=== PATIENT | female | born 1990 | race Two or more races ===

== ENCOUNTER 2017-07-24 00:19 | Emergency (ER) | payer SELFPAY ==
[~2017-07-24] VITALS: Ht 165.1 cm; Wt 111.5 kg
[2017-07-24] MEDS ORDERED: PROP60CA PO (00:52)
[2017-07-24] MEDS ORDERED: ONDANSETRON ODT 4 MG ONE (00:53)
[2017-07-24 00:54] LABS: BASOPHILS # (AUTO) 0.04 x10^3/uL (0-0.1); BASOPHILS % (AUTO) 0 % (0-1); EOSINOPHILS # (AUTO) 0.26 x10^3/uL (0-0.4); EOSINOPHILS % (AUTO) 3 % (1-7); LYMPHOCYTES # (AUTO) 3.48 x10^3/uL (1-3.4); LYMPHOCYTES % (AUTO) 37 % (22-44); MD NO; MEAN CORPUSCULAR HEMOGLOBIN 28.6 pg (27.0-34.8); MEAN CORPUSCULAR HGB CONC 33.3 g/dL (32.4-35.8); MEAN CORPUSCULAR VOLUME 85.9 fL (80-100); MEAN PLATELET VOLUME 8.8 fL (7.4-10.4); MONOCYTES % (AUTO) 10 % (2-9); NEUTROPHILS # (AUTO) 4.82 x10^3/uL (1.8-6.8); NEUTROPHILS % (AUTO) 51 % (42-75); PLATELET COUNT 268 x10^3/uL (130-400); RED BLOOD COUNT 5.24 x10^6/uL (3.82-5.3); RED CELL DISTRIBUTION WIDTH 13.6 % (9.6-15.2)
[2017-07-24] MEDS ORDERED: SODIUM CHLORIDE FLUSH 10ML SYR IVF ONE (01:00)
[2017-07-24] MEDS ORDERED: ONDANSETRON 2MG/ML, 2ML IVPush ONE (01:00)
[2017-07-24] MEDS ORDERED: SODIUM CHLORIDE 0.9% 1,000ML IVBOLUS ONE (01:00)
[2017-07-24 01:06] LABS: ALANINE AMINOTRANSFERASE 24 U/L (12-78); ALBUMIN 3.5 g/dL (3.4-5.0); ANION GAP 6 mmol/L (5-15); CALCIUM 8.5 mg/dL (8.5-10.1); CHLORIDE 109 mmol/L (98-107); CREATININE 0.74 mg/dL (0.55-1.02)
[2017-07-24 01:09] LABS: ALKALINE PHOSPHATASE 69 U/L (45-117); BILIRUBIN,TOTAL 0.6 mg/dL (0.2-1.0); TOTAL PROTEIN 7.9 g/dL (6.4-8.2)
[2017-07-24 01:20] LABS: HCG UR SG 1.035 (1.003-1.030)
[2017-07-24 01:24] LABS: MICROSCOPIC INDICATED
[2017-07-24 01:25] LABS: CULTURE INDICATED? YES
[2017-07-24] MEDS ORDERED: FAMOTIDINE 20 MG/2 ML IVPush ONE (02:00)
[2017-07-24] MEDS ORDERED: FAMOTIDINE 20 MG/2 ML ONE (02:24)
[2017-07-24 04:06] VITALS: BP 118/62
== END 2017-07-24 04:08 | disposition home or self-care (01) ==
LOC: ED 02:00
DX: R11.2 Nausea with vomiting, unspecified (principal); R19.7 Diarrhea, unspecified; R10.9 Unspecified abdominal pain
CPT/HCPCS: 36415; 76700; 80053; 81001; 81025; 83690; 85025; 87077; 87086; 96361; 96374; 99285; J7030; 87186; S0028

== ENCOUNTER 2017-07-28 08:20 | Emergency (ER) | payer SELFPAY ==
[~2017-07-28] VITALS: Ht 12.7 cm; Wt 112.4 kg
[~2017-07-28 08:20] MED LIST: PROP60CA PO
[2017-07-28] MEDS ORDERED: ONDANSETRON ODT 8 MG PO ONE (09:30)
[2017-07-28] MEDS ORDERED: SODIUM CHLORIDE FLUSH 10ML SYR IVF ONE (09:30)
[2017-07-28] MEDS ORDERED: MORPHINE SULFATE 4 MG/ML, 1ML IVPush PRN (09:30)
[2017-07-28] MEDS ORDERED: ONDANSETRON ODT 4 MG ONE (09:37)
[2017-07-28] MEDS ORDERED: MORPHINE SULFATE 4 MG/ML, 1ML ONE (09:37)
[2017-07-28 09:47] LABS: BASOPHILS # (AUTO) 0.02 x10^3/uL (0-0.1); BASOPHILS % (AUTO) 0 % (0-1); EOSINOPHILS # (AUTO) 0.31 x10^3/uL (0-0.4); EOSINOPHILS % (AUTO) 4 % (1-7); LYMPHOCYTES # (AUTO) 3.17 x10^3/uL (1-3.4); LYMPHOCYTES % (AUTO) 39 % (22-44); MD NO; MEAN CORPUSCULAR HGB CONC 34.2 g/dL (32.4-35.8); MEAN CORPUSCULAR VOLUME 84.8 fL (80-100); MEAN PLATELET VOLUME 8.6 fL (7.4-10.4); MONOCYTES # (AUTO) 0.53 x10^3/uL (0.2-0.8); MONOCYTES % (AUTO) 7 % (2-9); NEUTROPHILS # (AUTO) 4.01 x10^3/uL (1.8-6.8); NEUTROPHILS % (AUTO) 50 % (42-75); PLATELET COUNT 268 x10^3/uL (130-400); RED BLOOD COUNT 5.18 x10^6/uL (3.82-5.3); RED CELL DISTRIBUTION WIDTH 13.3 % (9.6-15.2)
[2017-07-28 09:56] LABS: ALANINE AMINOTRANSFERASE 24 U/L (12-78); ALBUMIN 3.6 g/dL (3.4-5.0); ANION GAP 4 mmol/L (5-15); CALCIUM 8.6 mg/dL (8.5-10.1); CHLORIDE 109 mmol/L (98-107)
[2017-07-28 10:00] LABS: ALKALINE PHOSPHATASE 68 U/L (45-117); BILIRUBIN,TOTAL 0.4 mg/dL (0.2-1.0); CREATININE 0.63 mg/dL (0.55-1.02); TOTAL PROTEIN 7.9 g/dL (6.4-8.2)
[2017-07-28 10:30] VITALS: BP 130/71
== END 2017-07-28 12:27 | disposition home or self-care (01) ==
LOC: ED 09:09
DX: R10.11 Right upper quadrant pain (principal); R11.2 Nausea with vomiting, unspecified; R19.7 Diarrhea, unspecified
CPT/HCPCS: 36415; 74176; 80053; 83605; 84703; 85025; 96374; 99285; Q0162

== ENCOUNTER 2017-08-19 09:04 | Emergency (ER) | payer SELFPAY ==
[2017-08-19 09:20] VITALS: BP 109/84
[2017-08-19 10:13] LABS: BASOPHILS # (AUTO) 0.02 x10^3/uL (0-0.1); BASOPHILS % (AUTO) 0 % (0-1); EOSINOPHILS # (AUTO) 0.22 x10^3/uL (0-0.4); EOSINOPHILS % (AUTO) 3 % (1-7); LYMPHOCYTES # (AUTO) 2.33 x10^3/uL (1-3.4); LYMPHOCYTES % (AUTO) 37 % (22-44); MD NO; MEAN CORPUSCULAR HEMOGLOBIN 28.2 pg (27.0-34.8); MEAN CORPUSCULAR HGB CONC 33.3 g/dL (32.4-35.8); MEAN CORPUSCULAR VOLUME 84.7 fL (80-100); MEAN PLATELET VOLUME 8.8 fL (7.4-10.4); MONOCYTES % (AUTO) 8 % (2-9); NEUTROPHILS # (AUTO) 3.29 x10^3/uL (1.8-6.8); NEUTROPHILS % (AUTO) 52 % (42-75); PLATELET COUNT 243 x10^3/uL (130-400); RED BLOOD COUNT 5.13 x10^6/uL (3.82-5.3); RED CELL DISTRIBUTION WIDTH 13.5 % (9.6-15.2)
[2017-08-19] MEDS ORDERED: LOPERAMIDE 2 MG CAPSULE ONE (10:15)
[2017-08-19] MEDS ORDERED: ONDANSETRON ODT 8 MG ONE (10:15)
[2017-08-19] MEDS ORDERED: MAALOX/HYOSCYAMINE/LIDOCAINE 45 ML BTL ONE (10:15)
[2017-08-19 10:24] LABS: ALANINE AMINOTRANSFERASE 23 U/L (12-78); ALBUMIN 3.3 g/dL (3.4-5.0); ANION GAP 7 mmol/L (5-15); CALCIUM 8.2 mg/dL (8.5-10.1); CHLORIDE 109 mmol/L (98-107); CREATININE 0.63 mg/dL (0.55-1.02)
[2017-08-19 10:28] LABS: ALKALINE PHOSPHATASE 63 U/L (45-117); BILIRUBIN,TOTAL 0.7 mg/dL (0.2-1.0); TOTAL PROTEIN 7.4 g/dL (6.4-8.2)
[2017-08-19] MEDS ORDERED: ONDANSETRON ODT 8 MG PO ONE (10:30)
[2017-08-19] MEDS ORDERED: SODIUM CHLORIDE 0.9% 1,000ML IVBOLUS ONE (10:30)
[2017-08-19] MEDS ORDERED: MAALOX/HYOSCYAMINE/LIDOCAINE 45 ML BTL PO ONE (10:30)
[2017-08-19] MEDS ORDERED: SODIUM CHLORIDE FLUSH 10ML SYR IVF ONE (10:30)
[2017-08-19] MEDS ORDERED: LOPERAMIDE 2 MG CAPSULE PO ONE (10:30)
[2017-08-19 11:20] LABS: MICROSCOPIC NOT IND
[2017-08-19 11:46] LABS: CULTURE INDICATED? NO
== END 2017-08-19 12:00 | disposition home or self-care (01) ==
LOC: ED 10:55
DX: K52.9 Noninfective gastroenteritis and colitis, unspecified (principal); F17.200 Nicotine dependence, unspecified, uncomplicated
CPT/HCPCS: 36415; 80053; 81003; 83690; 84703; 85025; 99284; J7030; Q0162

== ENCOUNTER 2017-08-26 14:52 | Emergency (ER) | payer SELFPAY ==
[~2017-08-26] VITALS: Ht 165.1 cm; Wt 111.2 kg
[2017-08-26] MEDS ORDERED: KETOROLAC 30 MG/1 ML ONE (15:26)
[2017-08-26] MEDS ORDERED: KETOROLAC 30 MG/1 ML IM ONE (15:30)
[2017-08-26 16:01] LABS: HCG UR SG 1.027 (1.003-1.030)
[2017-08-26] MEDS ORDERED: METHOCARBAMOL 750 MG TABLET PO ONE (16:30)
[2017-08-26] MEDS ORDERED: METHOCARBAMOL 750 MG TABLET ONE (16:41)
[2017-08-26 16:59] VITALS: BP 102/58
== END 2017-08-26 17:01 | disposition home or self-care (01) ==
LOC: ED 16:45
DX: S16.1XXA Strain of muscle, fascia and tendon at neck level, initial encounter (principal); S29.012A Strain of muscle and tendon of back wall of thorax, initial encounter; S40.011A Contusion of right shoulder, initial encounter; S50.01XA Contusion of right elbow, initial encounter; G89.11 Acute pain due to trauma; J45.909 Unspecified asthma, uncomplicated; I10 Essential (primary) hypertension; W01.0XXA Fall on same level from slipping, tripping and stumbling without subsequent striking against object, initial encounter; Y93.01 Activity, walking, marching and hiking; Y92.009 Unspecified place in unspecified non-institutional (private) residence as the place of occurrence of the external cause; Y99.8 Other external cause status
CPT/HCPCS: 72050; 72072; 73030; 73080; 81025; 96372; 99285; J1885

== ENCOUNTER 2017-08-27 22:48 | Emergency (ER) | payer SELFPAY ==
[~2017-08-27] VITALS: Ht 165.1 cm; Wt 104.0 kg
[2017-08-27 22:54] VITALS: BP 114/74
== END 2017-08-28 | disposition left against medical advice (07) ==
LOC: ED 23:54
DX: R10.9 Unspecified abdominal pain (principal); R11.2 Nausea with vomiting, unspecified; R19.7 Diarrhea, unspecified; R51 Headache